=== PATIENT | female | born 1955 | race Caucasian/White ===

== ENCOUNTER 2020-12-26 10:44 | Emergency (ER) | payer OTHER ==
[~2020-12-26] VITALS: Ht 167.6 cm; Wt 81.7 kg
[2020-12-26] MEDS ORDERED: IBUPROFEN 800800 MG PO (13:45)
[2020-12-26] MEDS ORDERED: FLEXERIL PO (13:45)
[2020-12-26 13:50] VITALS: BP 111/62
== END 2020-12-26 13:50 | disposition home or self-care (01) ==
LOC: ER 10:44
DX: S76.012A Strain of muscle, fascia and tendon of left hip, initial encounter (principal); M76.892 Other specified enthesopathies of left lower limb, excluding foot; X58.XXXA Exposure to other specified factors, initial encounter; Y93.89 Activity, other specified; Y92.89 Other specified places as the place of occurrence of the external cause; Y99.8 Other external cause status